=== PATIENT | female | born 2000 | race Caucasian/White ===

== ENCOUNTER 2020-08-15 08:39 | Emergency (ER) | payer OTHER ==
[2020-08-15 09:18] LABS: RED BLOOD COUNT 5.14 M/UL (4.00-5.10); WHITE BLOOD COUNT 22.2 K/UL (4.5-11.0)
[2020-08-15 09:36] LABS: BUN/CREATININE RATIO 26 (0-10)
[2020-08-15] MEDS ORDERED: ONDANSETRON ODT8 MG SL (11:13)
[2020-08-15] MEDS ORDERED: CEFUROXIME500 MG PO (11:13)
== END 2020-08-15 11:26 | disposition home or self-care (01) ==
LOC: ER1 08:39
PROVIDERS: Physician Assistant
DX: O23.01 Infections of kidney in pregnancy, first trimester (principal); R82.71 Bacteriuria; O21.1 Hyperemesis gravidarum with metabolic disturbance; O99.281 Endocrine, nutritional and metabolic diseases complicating pregnancy, first trimester; E86.0 Dehydration; Z3A.12 12 weeks gestation of pregnancy
CPT/HCPCS: 80053; 81001; 83690; 85025; 87086; 96365; 96375; 99284; J0696; J1200; J2765; J7030

== ENCOUNTER 2021-02-21 16:34 | Inpatient (IN) | payer OTHER ==
[~2021-02-21] VITALS: Ht 170.2 cm; Wt 82.1 kg
[~2021-02-21 16:34] MED LIST: CEFUROXIME500 MG PO; ONDANSETRON ODT8 MG SL
[2021-02-21 17:23] LABS: HEMOGLOBIN 13.5 gm/dl (12.3-15.3); RED BLOOD COUNT 4.94 M/UL (4.00-5.10); WHITE BLOOD COUNT 14.8 K/UL (4.5-11.0)
[2021-02-21] MEDS ORDERED: FLINTSTONES1 EAC1 PO (18:38)
[2021-02-22] MEDS ORDERED: DOCUSATE SODIU100 MG PO (21:54)
[2021-02-22] MEDS ORDERED: HYDROCODON-ACE1 EAC4 PO (21:54)
[2021-02-22] MEDS ORDERED: IBUPROFEN600 MG PO (21:54)
[2021-02-23 06:48] LABS: HEMOGLOBIN 11.6 gm/dl (12.3-15.3)
== END 2021-02-24 20:10 | disposition home or self-care (01) | DRG 787 ==
LOC: GENOP 16:34 → OB 16:45
PROVIDERS: Obstetrics & Gynecology; ADMIT Obstetrics & Gynecology
PROC: 10D00Z1 Extraction of Products of Conception, Low, Open Approach (ICD-10-PCS; principal; 2021-02-21)
PROC: 4A1HXCZ Monitoring of Products of Conception, Cardiac Rate, External Approach (ICD-10-PCS; 2021-02-21)
PROC: 3E02340 Introduction of Influenza Vaccine into Muscle, Percutaneous Approach (ICD-10-PCS; 2021-02-22)
DX: O69.1XX0 Labor and delivery complicated by cord around neck, with compression, not applicable or unspecified (principal); O72.1 Other immediate postpartum hemorrhage; Z37.0 Single live birth; Z20.822 Contact with and (suspected) exposure to COVID-19; O77.0 Labor and delivery complicated by meconium in amniotic fluid; O62.0 Primary inadequate contractions; Z23 Encounter for immunization; Z87.891 Personal history of nicotine dependence; Z3A.39 39 weeks gestation of pregnancy
CPT/HCPCS: 36415; 81001; 82800; 85014; 85018; 85025; C9113; J0456; J0690; J2210; J2250; J2274; J2370; J2405; J2590; J2704; J2795; J3010; J7030; J7120; U0003